=== PATIENT | male | born 1995 | race African-American/Black ===

== ENCOUNTER 2017-11-15 21:22 | Inpatient (IN) | payer OTHER ==
[~2017-11-15] VITALS: Ht 177.8 cm; Wt 74.8 kg
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
[2017-11-15 23:06] LABS: ABSOLUTE BASOPHIL COUNT 0 /CUMM (0.0-0.2); ABSOLUTE EOSINOPHIL COUNT 0 /CUMM (0.0-0.7); ABSOLUTE GRANULOCYTE CT 8.1 /CUMM (1.4-6.5); ABSOLUTE MONOCYTE COUNT 0.5 /CUMM (0.10-0.60); BASOPHIL % 0 % (0.0-2.0); EOSINOPHIL % 0.1 % (0-5); GRANULOCYTE % 83.9 % (42.2-75.2); HEMATOCRIT 43.9 % (42-52); MEAN CORPUSCULAR HGB 31.4 PG (27.0-31.0); MEAN CORPUSCULAR HGB CONC 33.2 G/DL (33.0-37.0); MEAN CORPUSCULAR VOLUME 94.7 FL (80.0-94.0); MEAN PLATELET VOLUME 9.4 FL (7.4-10.4); PLATELET COUNT 280 /CUMM (130-400); RBC DISTRIBUTION WIDTH 11.7 % (11.5-14.5); RED BLOOD CELL CT 4.64 /CUMM (4.70-6.10); WHITE BLOOD CELL COUNT 9.6 /CUMM (4.8-10.8)
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
[2017-11-16 16:24] VITALS: BP 121/49
[2017-11-16 19:56] VITALS: BP 99/58
[2017-11-16 20:15] VITALS: BP 99/58
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
--- NOTE | 2017-11-16 20:33 | Admission Certification ---
Admission Certification Certification Statement - As attending physician, I certify that at the time of - admission, based on clinical presentation, severity of - symptoms, need for further diagnostic testing and - therapeutic interventions, and risk of adverse outcomes - without in-hospital treatment, in my clinical assessment, - this patient requires an acute hospital stay for a minimum - of two nights or longer. I have also considered psychsocial - factors such as support system, advanced age, financial - issues, cognitive issues, and failed out-patient treatments, - past re-admission history, safety of patient, and lack of - compliance as applicable. Specific rationale supporting this admission is: Suicidal thoughts
[2017-11-17 08:05] VITALS: BP 117/58
[2017-11-17 12:22] VITALS: BP 106/56
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
[2017-11-17 15:57] VITALS: BP 143/73
[2017-11-17 19:51] VITALS: BP 126/62
[2017-11-18 07:43] VITALS: BP 98/52
[2017-11-18 12:19] VITALS: BP 114/51
[2017-11-18 15:57] VITALS: BP 125/57
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
[2017-11-18 19:38] VITALS: BP 126/64
--- NOTE | 2017-11-18 19:45 | CP SOUTH PROGRESS NOTE PSYCH ---
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 My mind is racing crazy. I am so upset and angry and confused its unbelievable. I do not know what to do with my life" The patient reported feeling depressed since he was very young. He was in special education in school. He always had behavioral problems and was sent from foster home to foster home. The patient lived with his adoptive parents until he was 11 years old and he was placed in DCF custody and was in multiple foster homes. He had a couple of jobs which he left on his own volition because of not being paid enough. She was fired from his most recent job. Mental Status Examination Steady gait, alert and oriented to time, place, and person. Tall, slender -Maltese male, casually dressed, well groomed, with a distinctive haircut very short on the sides with a very curly 1 inch in length top Pleasant, normal psychomotor activity, no abnormal behavior, Cooperative Speech was goal directed, average in rate, volume and tone Affect was euthymic. He said his mood is better but still somewhat down and anxious He denied suicidal Ideation, less hopeless and helpless Denied homicidal Ideation, denies Hallucinations, denies Paranoid/Delusional Material, there were no Difficulties with thought organization, no delusions, good insight: Good Judgment: Intact Cognition: Intact Memory Function, average intellectual functioning Impression and Plan: Unspecified depressive disorder rule out major depression rule out bipolar disorder Cannabis use disorder Treatment Plan: D/C Risperidone Medication management, therapeutic milieu, discharge planning, monitoring for suicidal ideation, mood, impulsivity
[2017-11-19 08:28] VITALS: BP 102/42
--- NOTE | 2017-11-19 10:27 | SOCIAL WORKER PROG NOTE PSYCH ---
Social Work Progress Note Progress Note Completed [facility] online review. Check website with next review date.
[2017-11-19 12:02] VITALS: BP 106/55
--- NOTE | 2017-11-19 12:22 | CP SOUTH PROGRESS NOTE PSYCH ---
Psych (Inpt) Progress Note Progress Note Demetrius's progress and treatment reviewed in multidisciplinary treatment team. Background: A 22-year-old single male admitted for feeling increasingly depressed Mental Status Examination; Demetrius was alert and oriented to time, place, and person. He was pleasant, normal psychomotor activity, no abnormal behavior, cooperative. He was soft spoken and not pressured or overproductive Affect was euthymic. He asked if he can discharged tomorrow. He said his mood is better and denied suicidal ideation, less hopeless and helpless. He denied homicidal ideation, denies hallucinations, denied feeling paranoid. There were no delusions. he was coherent/no difficulties with thought organization, no delusions, and good insight Intact Cognition, intact Memory, average intellectual functioning Impression and Plan: 22-year-old Black male admitted on 11/17/2017 and showing significant improvement Unspecified depressive disorder rule out major depression Cannabis use disorder Treatment Plan: Continue [place] Recheck levels tomorrow Medication management, therapeutic milieu, discharge planning, Consider discharge tomorrow or Friday Treatment Plan: D/C Risperidone Medication management, therapeutic milieu, discharge planning, monitoring for suicidal ideation, mood, impulsivity
[2017-11-19 16:13] VITALS: BP 124/55
--- NOTE | 2017-11-19 16:29 | SOCIAL WORKER PROG NOTE PSYCH ---
Adali Rowe 11/19/17 1626: Social Work Progress Note Progress Note Party Supply Specialist contacted Demetrius's landlord, Virgen Causey at ([phone]) to inform her that Demetrius would not be able to pay her for his weekly rent today as he is in the hospital. She stated that this is fine, and that he will not lose his room.
--- NOTE | 2017-11-19 18:42 | SOCIAL WORKER PROG NOTE PSYCH ---
Social Work Progress Note Progress Note 5:35pm This freelance writer met with patient. He described his mood as "anxious" without knowledge of any particular trigger. He stated that he would like to receive a new insurance card and will make this call tomorrow. Patient expressed interest in discharging on Friday and is interested in attending IOP at [facility] (due to location). Patient denied SI/HI/AH/VH.
[2017-11-19 20:02] VITALS: BP 131/57
[2017-11-20 08:35] LABS: LITHIUM 0.4 mmol/L (0.6-1.2)
[2017-11-20 08:46] VITALS: BP 123/75
[2017-11-20 12:40] VITALS: BP 112/50
--- NOTE | 2017-11-20 14:31 | CP SOUTH PROGRESS NOTE PSYCH ---
Psych (Inpt) Progress Note Progress Note Demetrius's progress and treatment reviewed in multidisciplinary treatment team. Mental Status Examination: Demetrius was alert and oriented to time, place, and person. He was pleasant and cooperative. He showed normal psychomotor activity, no abnormal behavior, cooperative. He was soft spoken and not pressured or overproductive. Affect was euthymic. He asked if he can discharged tomorrow. He said his mood is better and denied suicidal ideation, less hopeless and helpless. He denied homicidal ideation, denies hallucinations, denied feeling paranoid. There were no delusions. He was coherent/no difficulties with thought organization, no delusions, and good insight. Intact memory, average intellectual functioning Assessment: 22-year-old single Black male was admitted on 11/17/2017 feeling increasingly depressed Since then showing significant improvement Working Diagnosis Unspecified depressive disorder rule out major depression Cannabis use disorder Lab Shaw 0.4 mmol/L L 11/20/17 0720 Treatment Plan: Continue Shaw at same dose (despite level of 0.4) because of significant clinical improvement continue discharge planning/Likely discharge tomorrow
[2017-11-20 16:12] VITALS: BP 122/59
--- NOTE | 2017-11-20 16:20 | SOCIAL WORKER PROG NOTE PSYCH ---
Social Work Progress Note Progress Note Onion Topper attempted to meet with Demetrius several times through out the day but was unable to meet with patient has in the morning he was sleeping and in the afternoon he was in groups and/or on the phone.
[2017-11-20 19:53] VITALS: BP 126/59
[2017-11-21 08:45] VITALS: BP 114/59
--- NOTE | 2017-11-21 10:30 | SOCIAL WORKER PROG NOTE PSYCH ---
Social Work Progress Note Progress Note Completed Care IOP referral and faxed to [facility].
[2017-11-21] MEDS ORDERED: LITHIUM CARBON450 M1 PO (10:42)
--- NOTE | 2017-11-21 11:31 | CP SOUTH PROGRESS NOTE PSYCH ---
Psych (Inpt) Progress Note Progress Note Demetrius's progress and treatment reviewed in multidisciplinary treatment team. Mental Status Examination: Demetrius was alert and oriented to time, place, and person. He was pleasant and cooperative. He showed normal psychomotor activity, no abnormal behavior, cooperative. He was soft spoken and not pressured or overproductive. Affect was euthymic. He asked if he can discharged tomorrow. He said his mood is better and denied suicidal ideation, less hopeless and helpless. He denied homicidal ideation, denies hallucinations, denied feeling paranoid. There were no delusions. He was coherent/no difficulties with thought organization, no delusions, and good insight. Intact memory, average intellectual functioning Assessment: 22-year-old single Black male was admitted on 11/17/2017 feeling increasingly depressed Since then showing significant improvement Working Diagnosis Unspecified depressive disorder rule out major depression Cannabis use disorder Treatment Plan: Discharge Home to [facility] ([facility])
[2017-11-21 12:21] VITALS: BP 132/64
--- NOTE | 2017-11-21 12:38 | DISCHARGE SUMMARY REPORT-PSYCH ---
Visit Information Visit Dates/Diagnosis' Admission Date: 11/16/17 Discharge Date: 11/21/17 Reason for Admission: The patient is a 22-year-old black single male who was admitted through [facility]'s emergency department after presenting with the following chief complaints:" I don't know what to do. My mind is racing like crazy. I am so upset and angry and confused its unbelievable. I don't know what to do with my life." Psy Discharge Primary Diag: Mood Disorder Hospital Course Significant Lab Findings: Upon his presentation to the emergency Department his urine toxicology was positive for cannabis but negative for all else. blood alcohol level was undetectable Course Complications: There were no complications while the patient was on Inpatient Psychiatry Consultations: The patient had an admission history and physical examination by Dr. Nithin Novak MD The patient is young and physically healthy there were no medical issues that needs to be addressed while he was in Inpatient Psychiatry. Allergies: Coded Allergies: No Known Allergies (11/16/17) Hospital Course/TX Response: The patient presented to the emergency department on and was seen by the crisis intervention team the patient was admitted to the inpatient psychiatric unit for safety and further evaluation. He was evaluated for psychiatric admission assessment by Dr. Lopez on 11/17/2017 , her assessment was: "22 years old -Omani male with history of behavioral disturbances since childhood, history of ADD, family history of bipolar disorder, history of fights and conduct disorder growing up, history of trauma, coming in for suicidal ideation and is on his first formal psychiatric treatment. He need stabilization in a safe structured environment. He is voluntarily admitted into the inpatient psychiatric unit where he would benefit from medication management, therapeutic milieu, he will participate in discharge planning, she will be monitored for mood, suicidality, function he will be followed daily by the unit psychiatrist DSM 5 Diagnosis(es): Unspecified depressive disorder rule out major depression rule out bipolar disorder Cannabis use disorder" The patient was started on a very low-dose of Risperdal as well as lithium. I evaluated the patient the day after and he indicated his desire not to be on the Risperdal. He indicated that he may have taken lithium in the past and that it may have caused him some tremors in the past, but he reported that he is not having any of the present time. The lithium was continued. The patient showed significant improvement over the few days that he was on the inpatient psychiatric unit there was no side effects. The patient's lithium level at some the dose of 450 mg per day was listed on the therapeutic range however, the patient clinical condition showed significant improvement, and I did not see any need to keep pushing the lithium dose any further. Mental status examination at the time of discharge: The patient was alert and oriented. He was pleasant and cooperative. He reported that he feels ready for discharge and is looking forward to it. The patient showed normal psychomotor activity and no abnormal behaviors or movements. The patient's speech was normal. He reported that his mood is "good ". The patient denied any hopelessness or worthlessness. The patient denied wishing or thinking of suicide. He denied having violent thoughts or thoughts of homicide. He denied hallucinations. There were no delusions and no thought disorder. He reported that his anxiety is low and manageable he has average intelligence no impairment in memory, and has reasonable attention and concentration. Discharge diagnosis: Unspecified depressive disorder Cannabis use disorder Discharge and aftercare plan: The patient will be discharged to his home he rents an apartment week to week. Aftercare is with [facility] intensive outpatient program. Discharge medications: Wassaic carbonate extended release formulation 450 mg at bedtime Discharge HBIPS - Tobacco Use Treatment Offered Post DC Medications Offered: Not Applicable Post DC Tobacco Treatment Plan: Not Applicable - EtOH/Drug Use D/O Treatment Offered Post DC Medications Offered: NA-No EtOH/Drug Use D/O Post DC EtOH/SubAbuse TX Plan: NA-No EtOH/Drug Use D/O Metabolic Screening - Screen if on a Neuroleptic Medication - Metabolic screening should include: - Blood Pressure, BMI, Glucose or Hgb A1c, & a - Lipid profile from within the past 365 days. Discharge Instructions General Discharge Information Multiple Neuroleptics: (X) Not Applicable OR Document below three failed attempts at monotherapy, or a plan to taper to monotherapy, or augmentation of Clozapine. () Discharge Diet Regular Discharge Activity Normal DC Disposition: Home with [facility] IOP Prescriptions Start taking the following new medications: Wassaic Carbonate (Wassaic Carbonate ER) 450 MG TABLET.ER 450 Milligram ORAL AT BEDTIME Qty = 14 No Refills Copies To: [facility]
--- NOTE | 2017-11-21 15:32 | SOCIAL WORKER PROG NOTE PSYCH ---
See Addendum Social Work Progress Note Progress Note 10:05am This science writer met with patient. When asked about his mood, he responded, "I'm actually doing great." Patient stated that he spoke with his sister and a friend on the phone last night and reflected on the support he feels that he receives from them. He identified the groups that he has been attending on this unit as beneficial and is looking forward to attending IOP at [facility]. Patient denied SI/HI/AH/VH. He identified a safety plan in which he would "call my sister and my boy, Rick." He was also informed that he would be receiving the warm line numbers and crisis numbers upon discharge today. Patient stated that he plans to return to his apartment and will call a friend for a ride home from the hospital this afternoon. Patient was informed that a referral for dual IOP had been sent to [facility] today and he will be informed of an intake appointment prior to discharging; patient was agreeable with this plan. This science writer spoke with Faith at [facility] by phone ([phone], [phone]. [phone]) who requested that clinical information is also faxed and that she had received the IOP referral. Upon faxing the clinical information, this science writer and Faith spoke again to schedule an IOP intake appointment for , 11/27/17 at 2pm. She was informed that the patient is also interested in the case management services, to which she stated that she would make a note in order for the agent contract clerk to discuss this with the patient further when they meet. Patient was requested to bring an ID and his insurance card to the intake. Faith was informed that the patient has been attempting to obtain a replacement insurance card. She stated that this would not impact him attending the intake and that staff at [facility] could assist him in obtaining a new card if needed. As discussed with Dr. Waite, Faith was informed that the patient would be discharged with two weeks worth of medication. She was unable to schedule a medication appointment at this time, but stated that he would be seen prior to needing refills. In addition, Faith placed the patient on the cancellation list in the event that an earlier intake appointment becomes available. At patient's request for resource to obtain a new insurance card, this science writer spoke with Valencia Sauceda ( Clinical Nursing Professor/Patient Advocate) to inquire about how a person could do so. Valencia provided the following number: , option 1, then option 0. Patient stated that he had been calling this number, however not been successful and would continue to call. He was informed that he could speak with [facility] if needing any additional assistance and was agreeable to this. He accepted the intake appointment with [facility] and, as instructed by Faith, he will call to inquire about possible earlier appointments. He was informed that she may call him if an earlier appointment becomes available and that a medication appointment will be scheduled once he attends the intake. Patient confirmed that he had spoke with a friend, who will provide transportation home from the hospital today.
== END 2017-11-21 15:40 | DRG 753 ==
LOC: ERH 21:22 → CP SOUTH 11-16 11:55 → ERHI 11-16 11:55 → ENTRNSPT 11-16 14:30 → EDTRNSPT 11-16 14:58 → EDTRNSPTSTS 11-16 14:58 → CP SOUTH 11-16 15:03 → EDTRNSPT 11-16 15:28 → CP SOUTH 11-16 17:01 → CMPTRNSPT 11-16 17:06 → CP SOUTH 11-18 10:28
PROVIDERS: Pediatrics; Psychiatry & Neurology Psychiatry
DX: F39 Unspecified mood [affective] disorder (principal)
CPT/HCPCS: 36415; 80307; 82436; G0480